=== PATIENT | male | born 1985 | race Caucasian/White ===

== ENCOUNTER 2025-09-02 09:10 | Outpatient (REF) | payer OTHER, SELFPAY ==
--- OUTSIDE RECORDS SUMMARY | 2025-09-01 13:15 | XMS_ITS | Encounter Summary ---
Author Organization [email or web address] Address [address] [facility] [address] [place] [address] Care Team Providers Care Glass Bulb Silverer Name Role Phone Génesis Prince MD Primary Care Provider [phone] Reason for Referral * Consultation (Routine) - Pending Review Specialty Diagnoses / Procedures Referred By Mel rush Referred To Contact Sleep Medicine Diagnoses Sleep apnea, unspecified type Génesis Prince MD [address] [place] [id number] Phone: tel: fax: Referral ID Status Reason Start Date Expiration Date Visits Requested Visits Authorized [id number] Pending Review Specialty Services Required 09/01/2026 1 1 * Imaging (Routine) - Pending Review Specialty Diagnoses / Procedures Referred By Mel rush Referred To Contact Radiology Diagnoses Other chest pain Procedures CT CORONARY CALCIUM SCORE Génesis Prince MD [address] [place] [address] Phone: tel: fax: [address] [address] Phone: tel: fax: Referral ID Status Reason Start Date Expiration Date V isits Requested Visits Authorized [id number] Pending Review 09/01/2025 09/01/2026 1 1 * Cardiac Stress Testing (Routine) - Pending Review Specialty Diagnoses / Procedures Referred By Mel rush Referred To Contact Diagnoses Other chest pain Procedures Stress test Génesis Prince MD [address] [place] [address] Phone: tel: fax: [facility] [address] [place] [address] Phone: tel: fax: Referral ID Status Reason Start Date Expiration Date V isits Requested Visits Authorized [id number] Pending Review 09/01/2025 09/01/2026 1 1 Reason for Visit * Reason Comments Establish Care Encounter Details Date Type Department Care Team ([facility] st Contact Info) Description 09/01/2025 1:15 PM EST Office Visit [facility] MED & PEDS [address] [place] [address] Génesis Prince MD [address] [place] [address] Obstructive sleep apnea syndrome (Primary Dx); Chest pain; Sleep apnea, unspecified type; Class 2 obesity without serious comorbidity with body mass index (BMI) of 37.0 to 37.9 in adult, unspecified obesity type; Encounter for health-related screening; Dietary counseling; Exercise counseling; Obesity, Class III Social History Tobacco Use Types Packs/Day Years Used Date Smoking Tobacco: Never Passive Smoke Exposure: Never Smokeless Tobacco: Never Tobacco Cessation:Counseling Given: Not Answered Depression Answer Date Recorded Patient Health Questionnaire-9 Score 14 09/01/2025 Patient Health Questionnaire-9 Score 14 09/01/2025 Last PHQ-9: Questionnaire Data Not on file 1 11/02/2024 Housing Stability Answer Date Recorded What is your housing situation today? I have brittany lopez 08/24/[address] you li ve. Do you have problems with any of the following? None of the above 08/24/2025 Food Insecurity Answer Date Recorded Within the past 12 months, y ou worried that your food would run out before you got money to buy more: Never True 08/24/2025 Within the past 12 months,th e food you bought just didn't last and you didn't have enough money to get more: Never True 12/2024 Transportation Answer Date Recorded In the past 12 months, has l ack of transportation kept you from medical appts, meetings, work or from getting things needed for daily living? No 08/24/2025 Utilities Answer Date Recorded In the past 12 months, has t he electric, gas, oil or water company threatened to shut off services in your home? No 08/24/2025 Depression Answer Date Recorded Patient Health Questionnaire-2 Score 2 09/01/2025 Internet Access Answer Date Recorded Internet Access Q1 Yes 08/24/2025 Internet Access Q2 Not on file 08/24/2025 Sex and Gender Information Value Date Recorded Sex Assigned at Male 07/06/2025 8:13 AM EDT Legal Sex Male 10:34 AM EDT Gender Identity Male 07/06/2025 8:13 AM EDT Sexual Orientation Don't know 08/31/2025 11 :38 AM EST documented as of this encounter Last Filed Vital Signs Vital Sign Reading Time Taken Comments Blood Pressure 128/68 09/01/2025 1:53 PM EST Pulse 80 09/01/2025 1:14 PM EST Temperature 36.9 C (98.4 F) 09/01/2025 1:14 PM EST Respiratory Rate 20 09/01/2025 1:14 PM EST Oxygen Saturation 98% 09/01/2025 1:14 PM EST Inhaled Oxygen Concentration - - Weight 111 kg (244 lb 9.6 oz) 09/01/2025 1:14 PM EST Height 172.7 cm (5' 8 ) 09/01/2025 1:14 PM EST Body Mass Index 37.19 09/01/2025 1:14 PM EST documented in this encounter Functional Status * Over the past 2 weeks, how often have you been bothered by any of the following problems? Question Answer Date of Assessment Author Patient Health Questionnaire-2 Score 2 08/21 2:01 PM EST Sharmila Graham MA * Little interest or pleasure in doing things Answer Date of Assessment Author More than half the days 09/01/2025 2:01 PM Sharmila Chavez MA * Feeling down, depressed, or hopeless Answer Date of Assessment Author Not at all 09/01/2025 2:01 PM Sharmila Jeter MA * Trouble falling or staying asleep, or sleeping too much Answer Date of Assessment Author Nearly every day 09/01/2025 2:01 PM Sharmila Jeter MA * Feeling tired or having little energy Answer Date of Assessment Author Nearly every day 09/01/2025 2:01 PM Sharmila Jeter MA * Poor appetite or overeating Answer Date of Assessment Author Nearly every day 09/01/2025 2:01 PM Sharmila Jeter MA * Feeling bad about yourself - or that you are a failure or have let yourself or your family down Answer Date of Assessment Author Not at all 09/01/2025 2:01 PM Sharmila Jeter MA * Trouble concentrating on things, such as reading the newspaper or watching television Answer Date of Assessment Author Nearly every day 09/01/2025 2:01 PM Sharmila Jeter MA * Moving or speaking so slowly that other people could have noticed? Or the opposite - being so fidgety or restless that you have been moving around a lot more than usual. Answer Date of Assessment Author Not at all 09/01/2025 2:01 PM Sharmila Jeter MA * Thoughts that you would be better off or hurting yourself in some way Answer Date of Assessment Author Not at all 09/01/2025 2:01 PM Sharmila Jeter MA * Patient Health Questionnaire-9 Score Answer Date of Assessment Author 14 09/01/2025 2:01 PM Sharmila Jeter MA * Over the last 2 weeks, how often have you been bothered by any of the following problems? Question Answer Date of Assessment Author Feeling nervous, anxious, or on edge 0 08/21 2:02 PM Sharmila Jeter MA Not being able to stop or co ntrol worrying 2 09/01/2025 2:02 PM Sharmila Jeter M A Worrying too much about diff erent things 2 09/01/2025 2:02 PM Sharmila Jeter M A Trouble relaxing 2 09/01/2025 2:02 PM Sharmila Chavez MA Being so restless that it is hard to sit still 1 09/01/2025 2:02 PM Sharmila Jeter M A Becoming easily annoyed or irritable 3 08/21 2:02 PM Sharmila Jeter MA Feeling afraid as if somethi ng awful might happen 0 09/01/2025 2:02 PM Sharmila Jeter M A COREY-7 Total Score 10 09/01/2025 2:02 PM Sharmila Jeter MA * How difficult have these problems made it for you to do your work, take care of things at home, or get along with other people? Answer Date of Assessment Author Somewhat difficult 09/01/2025 2:01 PM Sahrmila Medina MA documented as of this encounter Progress Notes * Génesis Prince MD - 09/01/2025 1:15 PM EST Subjective Patient ID: Luis Felipe Gale is a 39 y.o. male who presents for No chief complaint on file.. Luis Felipe Gale is a male patient who presents for his first visit to this practice in years, reporting chest pains and sleep difficulties that have been occurring over the past year. The patient describes experiencing intermittent chest pain that can occur while sitting, driving, or working. The pain is described as expanding and can radiate to either the left or right shoulder. Episodes last anywhere from a couple of minutes to 30 minutes and resolve spontaneously without intervention. He notes that since starting a diet, he experiences shortness of breath more quickly during physical activity and his heart races more easily than before. Regarding sleep issues, the patient reports chronic insomnia that has persisted for years. He typically sleeps only 3-4 hours per night and has difficulty both falling asleep and staying asleep. His sleep pattern is irregular - he may work all day, stay awake until midnight, then wake up at 4 AM for work, essentially burning himself out before being able to sleep well. Even on days without work pressure, he sometimes wakes up at 2-3 AM. He acknowledges snoring but his fianc?? has not reported any episodes of stopped breathing during sleep. The patient feels tired, fatigued, and sleepy during the day. 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 He denies any chronic medical conditions, stating he has not seen a doctor in years. 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 and children - Sleep Patterns: Chronic sleep difficulties with typically 3-4 hours of sleep per night; irregularsleep schedule related to work demands Review of Systems General: Positive for fatigue and feeling tired during the day. Cardiovascular: Positive for chest pain that radiates to left or right shoulder, episodes lasting 2-30 minutes and self-resolving. Positive for shortness of breath and heart racing with physical activity. Respiratory: Positive for shortness of breath with exertion. Psychiatric: Positive for sleep difficulties with only 3-4 hours of sleep per night, difficulty falling asleep, and frequent logistics center manager awakening. Review of Systems Objective BP 128/68 (BP Location: Right arm, Patient Position: Sitting, BP Cuff Size: Large adult) Pulse 80 Temp 98.4 ??F (36.9 ??C) (Oral) Resp 20 Ht 5' 8 (1.727 m) Wt 244 lb 9.6 oz (111 kg) AtE760% BMI 37.19 kg/m?? Physical Exam Constitutional: General: He is not in acute distress. Appearance: He is obese. He is not ill-appearing. HENT: Head: Normocephalic and atraumatic. Nose: No congestion. Pulmonary: Effort: Pulmonary effort is normal. No respiratory distress. Breath sounds: Normal breath sounds. Musculoskeletal: Cervical back: Normal range of motion. Neurological: General: No focal deficit present. Mental Status: He is alert. Psychiatric: Mood and Affect: Mood normal. Assessment/Plan Problem List Items Addressed This Visit Obstructive sleep apnea syndrome - Primary Other chest pain Relevant Orders Stress test CT CORONARY CALCIUM SCORE XR Chest 2 Views Other Visit Diagnoses Sleep apnea, unspecified type Relevant Orders Referral to Sleep Medicine Class 2 obesity without serious comorbidity with body mass index (BMI) of 37.0 to 37.9 in adult, unspecified obesity type Relevant Orders CBC auto differential Comprehensive Metabolic Panel Lipid Panel, Standard TSH W/Reflex to FT4 Iron And Total Iron Binding Capacity Ferritin Encounter for health-related screening Relevant Orders HIV-1/2 Antigen and Antibodies, Fourth Generation, with Reflexes Hepatitis C Antibody with Reflex to HCV, RNA, Quantitative, Real-Time PCR Hepatitis B Surface Antibody, Qualitative Hepatitis B surface antigen, EIA Hepatitis B Core Antibody, Total Luis Felipe Gale is a male travograph operator presenting with chest pain episodes over the past yearand chronic insomnia, with strong family history of early coronary artery disease. Atypical chest pain Assessment: Patient reports intermittent chest pain episodes over the past year, described as expanding pain that can radiate to either left or right shoulder, occurring randomly while sitting, driving, or working. Episodes last 2-30 minutes and self-resolve. Patient also reports increased shortness of breath and heart racing with physical activity since starting diet. Given strong family historyof early coronary artery disease (paternal aunts of heart attacks in their early 40s) and borderline elevated blood pressure, there is concern for possible coronary artery disease despite patient's relatively young age. Plan: - Order stress test to evaluate for coronary artery disease - Order coronary calcium score CT to assess for arterial blockage - Order chest X-ray for cardiac evaluation - Stress test and coronary calcium score to be done at [place] (patient will be called for appointments) - Chest X-ray can be done as walk-in at [facility] Chronic insomnia Assessment: Patient reports chronic sleep difficulties for years, typically sleeping only 3-4 hoursper night. Sleep pattern is inconsistent - patient stays awake until exhaustion forces sleep, then may have periods of better sleep followed by return to poor sleep. Even without work pressure, patient wakes at 2-3 AM. Patient acknowledges snoring. STOP-BANG score is 5 (high BMI >35, age >50 not met but male gender, thick neck circumference 48 cm, reports snoring, daytime fatigue), indicating very high risk for sleep apnea. Plan: - Refer to [facility] for sleep study evaluation - Patient will be contacted by sleep center for appointment scheduling Possible iron overload Assessment: Patient reports previous physician mentioned too much iron in urine but received no follow-up information or treatment recommendations from prior provider. Concern for possible hemochromatosis requires evaluation. Plan: - Order iron and ferritin levels - Labs can be done at [facility] (fasting required) Routine health maintenance Assessment: Patient has not seen physician in years and requires routine screening labs and preventive care. Plan: - Order CBC, CMP, lipid panel, TSH - Screen for HIV and hepatitis C (routine screening for adults over 18) - Labs to be done fasting, can be completed at [facility] documented in this encounter Plan of Treatment Upcoming Encounters Date Type Department Care Team (Late st Contact Info) Description 11/02/2025 3:00 PM EST Office Visit [facility] MED & PEDS [address] [place] [address] Génesis Prince MD [address] [place] [address] Scheduled Orders Name Type Priority Associated Diagnoses Orde r Schedule Stress test Cardiac Services Routine Chest pain Expected: 09/01/2025 (Approximate), Expires: 09/01/2027 CT CORONARY CALCIUM SCORE Imaging Routine Chest pain Expected: 09/01/2025, Expires: 09/01/2026 CBC auto differential Lab Routine Class 2 obesity without serious comorbidity with body mass index (BMI) of 37.0 to 37.9 in adult, unspecified obesity type Expected: 09/01/2025 (Approximate), Expires: 09/01/2026 Comprehensive Metabolic Panel Lab Routine Class 2 obesity without serious comorbidity with body mass index (BMI) of 37.0 to 37.9 in adult, unspecified obesity type Expected: 09/01/2025 (Approximate), Expires: 09/01/2026 Lipid Panel, Standard Lab Routine Class 2 obesity without serious comorbidity with body mass index (BMI) of 37.0 to 37.9 in adult, unspecified obesity type Expected: 09/01/2025 (Approximate), Expires: 09/01/2026 TSH W/Reflex to FT4 Lab Routine Class 2 obesity without serious comorbidity with body mass index (BMI) of 37.0 to 37.9 in adult, unspecified obesity type Expected: 09/01/2025 (Approximate), Expires: 09/01/2026 Iron And Total Iron Binding Capacity Lab Routine Class 2 obesity without serious comorbidity with body mass index (BMI) of 37.0 to 37.9 in adult, unspecified obesity type Expected: 09/01/2025, Expires: 09/01/2026 Ferritin Lab Routine Class 2 obesity without serious comorbidity with body mass index (BMI) of 37.0 to 37.9 in adult, unspecified obesity type Expected: 09/01/2025 (Approximate), Expires: 09/01/2026 HIV-1/2 Antigen and Antibodies, Fourth Generation, with Reflexes Lab Routine Encounter for health-related screening Expected: 09/01/2025 (Approximate), Expires: 09/01/2026 Hepatitis C Antibody with Reflex to HCV, RNA, Quantitative, Real-Time PCR Lab Routine Encounter for health-related screening Expected: 09/01/2025, Expires: 09/01/2026 Hepatitis B Surface Antibody, Qualitative Lab Routine Encounter for health-related screening Expected: 09/01/2025 (Approximate), Expires: 09/01/2026 Hepatitis B surface antigen, EIA Lab Routine Encounter for health-related screening Expected: 09/01/2025 (Approximate), Expires: 09/01/2026 Hepatitis B Core Antibody, Total Lab Routine Encounter for health-related screening Expected: 09/01/2025 (Approximate), Expires: 09/01/2026 XR Chest 2 Views Imaging Routine Chest pain Expected: 09/01/2025, Expires: 09/01/2026 Scheduled Referrals Name Type Priority Associated Diagnoses Orde r Schedule Referral to Sleep Medicine Outpatient Referral Routine Sleep apnea, unspecified type Expected: 09/01/2025 (Approximate), Expires: 09/01/2026 documented as of this encounter Visit Diagnoses Diagnosis Obstructive sleep apnea syndrome- Primary Obstructive sleep apnea (adult) (pediatric) Chest pain Other chest pain Sleep apnea, unspecified type Class 2 obesity without serious comorbidity with body mass index (BMI) of 37.0 to 37.9 in adult, unspecified obesity type Encounter for health-related screening Dietary counseling Dietary surveillance and counseling Exercise counseling Obesity, Class III documented in this encounter Additional Health Concerns Assessment Noted Time PHQ-9 Depression Total Score: 14 025 2:01 PM EST documented as of this encounter Care Teams Glass Bulb Silverer Relationship Specialty Start Date End Date Génesis Prince MD [address] [place] [id number] PCP - General Family Medicine 09/01/25 documented as of this encounter
--- NOTE | ~2025-09-02 | XR_ITS ---
EXAMINATION: XR CHEST CLINICAL INFORMATION: 39 yo M with atypical CP, [place] [facility] [place]: Chest x-ray 07/14/2019 TECHNIQUE: 2 views of the chest were obtained. FINDINGS: The lungs are well-expanded and clear acute process. Heart size and pulmonary vascularity is normal. There is mild dextroscoliosis dorsal spine. No aggressive lytic or sclerotic process. XR/XR chest 2V IMPRESSION: Unremarkable chest exam. Electronically signed by: Corwin Dugan MD 09/04/2025 07:54 AM EST
--- OUTSIDE RECORDS SUMMARY | 2025-09-02 09:17 | XMS_ITS | Clinical Summary ---
Author Organization [employer] Address [address] [facility] [address] [place] [address] Care Team Providers Care Hand Roller Engraver Name Role Phone Génesis Prince MD Primary Care Provider [phone] Allergies No known active allergies Medications No known medications Active Problems Problem Noted Date Diagnosed Date Obstructive sleep apnea syndrome 09/01/2025 Other chest pain 09/01/2025 Encounters Date Type Department Care Team Description 09/01/2025 1:15 PM EST Office Visit [facility] MED & PEDS [address] [place] [address] Génesis Prince MD Obstructive sleep apnea syndrome (Primary Dx); Chest pain; Sleep apnea, unspecified type; Class 2 obesity without serious comorbidity with body mass index (BMI) of 37.0 to 37.9 in adult, unspecified obesity type; Encounter for health-related screening; Dietary counseling; Exercise counseling; Obesity, Class III 09/01/2025 Travel 08/24/2025 Patient Outreach [facility] PEDS [address] [place] [address] Génesis Prince MD Pre-visit Planning (SDOH negative. Tobacco screening negative. ) 07/05/2025 Travel from Last 3 Months Family History Medical History Relation Name Comments Heart attack Father's Sister Relation Name Status Comments Father Alive Father's Sister Social History Tobacco Use Types Packs/Day Years [...] Don't know 08/31/2025 11 :38 AM EST Last Filed Vital Signs Vital Sign Reading [...] Mass Index 37.19 09/01/2025 1:14 PM EST Plan of Treatment Upcoming Encounters Date Type Department Care Team (Late st Contact Info) Description 11/02/2025 3:00 PM EST Office Visit [facility] MED & PEDS [address] [place] [address] Génesis Prince MD [address] [place] [address] Health Maintenance Due Date Last Done Comments HIV Screening 1985 Lipid Panel 1985 Family Planning (PISQ) 2000 HPV Vaccines (1 - Male 3-dos e series) 2000 Hepatitis C Screening 2003 DTaP/Tdap/Td Vaccines (1 - Tdap) 2004 Hepatitis B Vaccines (1 of 3 - 19+ 3-dose series) 2004 COVID-19 Vaccine (1 - 2024-2 6 season) 2025 Influenza Vaccine (#1) 2025 Depression Monitoring 03/02/2026 09/01/2025 , 09/01/2025 Alcohol/Substance Use Screening 09/01/2026 09/01/2025 Disability Screening 09/01/2026 09/01/2025 SDOH Screening 09/01/2026 09/01/2025 Tobacco Screening 09/01/2026 09/01/2025 Zoster Vaccines (1 of 2) 2035 RSV Patients and Patients Aged 60 years or older (1 - 1-dose 75+ series) 2060 HIB Vaccines Aged Out No longer eligi ble based on patient's age to complete this topic Hepatitis A Vaccines Aged Out No long er eligible based on patient's age to complete this topic IPV Vaccines Aged Out No longer eligi ble based on patient's age to complete this topic Meningococcal B Vaccine Aged Out No l onger eligible based on patient's age to complete this topic Meningococcal Vaccine Aged Out No moy chris eligible based on patient's age to complete this topic Pneumococcal Vaccine: Pediatrics (0 to 5 Years) and At-Risk Patients (6 to 49) Years Aged Out No longer eligible b ased on patient's age to complete this topic RSV under 20 months Aged Out No longe r eligible based on patient's age to complete this topic Rotavirus Vaccines Aged Out No longer eligible based on patient's age to complete this topic Insurance [facility] Care Teams Hand Roller Engraver Relationship Specialty Start Date End Date Génesis Prince MD [address] [place] [address] [facility] [place] [address] PCP - General Family Medicine 09/01/25
--- OUTSIDE RECORDS SUMMARY | 2025-09-02 09:17 | XMS_ITS | Encounter Summary ---
Author Organization [employer] Address [address] [place] [address] Care Team Providers Care Development Rep Name Role Phone Génesis Prince MD Primary Care Provider [phone] Encounter Details Date Type Department Care Team (Latest Contact Info) Description 09/01/2025 Travel Social History Tobacco Use Types Packs/Day Years Used Date Smoking Tobacco: Never Passive Smoke Exposure: Never Smokeless Tobacco: Never Depression Answer Date Recorded Patient Health Questionnaire-9 [...] AM EST documented as of this encounter Functional Status * Over the past 2 weeks, how often have you been bothered by any of the following problems? Question Answer Date of Assessment Author Patient Health Questionnaire-2 Score 2 08/21 2:01 PM Sharmila Jeter MA * Little interest or pleasure in [...] Assessment Author Somewhat difficult 09/01/2025 2:01 PM Sharmila Medina MA documented as of this encounter Plan of Treatment Upcoming Encounters Date Type Department Care Team (Late st Contact Info) Description 11/02/2025 3:00 PM EST Office Visit [facility] MED & PEDS [address] [place] [address] Génesis Prince MD [address] [place] [address] documented as of this encounter Visit Diagnoses Not on filedocumented in this encounter Additional Health Concerns Assessment Noted Time PHQ-9 Depression Total Score: 14 025 2:01 PM EST documented as of this encounter Care Teams Development Rep Relationship Specialty Start Date End Date Génesis Prince MD [address] [place] [id number] PCP - General Family Medicine 09/01/25 documented as of this encounter
[2025-09-02 09:31] LABS: MANUAL DIFF FLAG NO
[2025-09-02 10:18] LABS: Hematocrit 50.6 % (42.0-52.0); Hemoglobin 16.5 g/dl (14.0-18.0); Imm Gran Abs Auto 0.02 X10*3/uL (0.00-0.03); Imm Gran Pct Auto 0.3 % (0.0-0.4); Lymphocytes Absolute Auto 2.3 X10*3/uL (1.2-4.9); Mean Corpuscular HGB Conc 32.6 g/dl (31.0-36.0); Mean Corpuscular Hemoglobin 27.5 pg (27.0-33.0); Mean Corpuscular Volume 84.2 fL (80.0-98.0); NRBC Abs Auto 0.000 X10*3/uL (0.0-0.012); NRBC Pct Auto 0.0 /100WBC (0.0-0.2); Platelet Count 282 X10*3/uL (160-400); Red Blood Count 6.01 X10*6/uL (4.60-5.80); White Blood Count 7.0 X10*3/uL (4.8-10.8)
[2025-09-02 11:00] LABS: Alanine Aminotransferase 52 U/L (0-40); Albumin Level 4.8 g/dL (3.5-5.0); Alkaline Phosphatase 59 U/L (39-117); Anion Gap 12 (12-20); Aspartate Amino Transferase 25 U/L (5-37); Blood Urea Nitrogen 20 mg/dL (9-16); Calcium 9.7 mg/dL (8.4-10.2); Carbon Dioxide 25 mmol/L (22-29); Chloride 106 mmol/L (96-108); Cholesterol 266 mg/dL (<200); Estimated Glomerular Filt Rate > 60; HDL Cholesterol 49 mg/dL (>40); Iron 82 mcg/dL (45-160); Percent Iron Saturation 28 % (15-50); Potassium 4.1 mmol/L (3.3-5.1); Sodium 139 mmol/L (135-145); Total Iron Binding Capacity 291 mcg/dL (228-428); Total Protein 8.0 g/dL (6.5-8.0); Triglycerides 110 mg/dL (<150); Unsaturated Iron Binding 209 ug/dL
[2025-09-02 11:14] LABS: HBS Num1 0.00 mIU/mL (0-7.99); HBc Num1 0.06 S/CO (0.00-0.79); HBsAGNum1 0.56 S/CO (0.00-0.99); HIV Num 1 0.07 S/CO (0.00-0.99); Hepatitis B Surface Antigen Negative (Negative); ~HepC Num1 0.15 S/CO (0.00-0.79); ~Hepatitis B Surface Antibody NONREACTIVE (Nonreactive); ~Hepatitis C Antibody Nonreactive (Nonreactive)
[2025-09-02 11:26] LABS: Ferritin 347 ng/mL (20-250)
== END 2025-09-02 09:11 | disposition home or self-care (01) ==
LOC: HO.XRAY 09:10
PROVIDERS: PCP Family Medicine; Visit Provider Family Medicine
DX: R07.89 Other chest pain (principal); E66.812 Obesity, class 2; Z68.37 Body mass index [BMI] 37.0-37.9, adult; Z13.89 Encounter for screening for other disorder; Z01.84 Encounter for antibody response examination; Z13.29 Encounter for screening for other suspected endocrine disorder; Z11.4 Encounter for screening for human immunodeficiency virus [HIV]; Z13.0 Encounter for screening for diseases of the blood and blood-forming organs and certain disorders involving the immune mechanism
CPT/HCPCS: 36415; 71046; 80053; 80061; 82728; 83540; 84443; 85025; 86704; 86706; 86803; 87340; 87389

== ENCOUNTER → 2025-09-02 09:31 | Outpatient (BNV) | payer OTHER, SELFPAY | PROVIDERS: PCP Family Medicine; Visit Provider Radiology Diagnostic Radiology | DX: R07.89 Other chest pain (principal) | CPT/HCPCS: 71046 ==